=== PATIENT | female | born 1985 | race African-American/Black ===

== ENCOUNTER → 2019-02-18 | Outpatient (REF) | payer OTHER ==
[~2019-02-18] MED LIST: HYDROCHLOROT25 MG PO; LISINOPRIL20 MG PO; NORVASC PO; PRILOSEC40 MG PO; ULTRAM50 M1 PO
== END | disposition home or self-care (01) | DRG 552 ==
LOC: DI 17:56
PROVIDERS: ATTEND Physician Assistant
DX: M54.5 Low back pain (principal)

== ENCOUNTER 2019-06-18 08:34 | Emergency (ER) | payer OTHER ==
[~2019-06-18] VITALS: Ht 152.4 cm; Wt 76.4 kg
[2019-06-18] MEDS ORDERED: NORMODYNE/TRAN100 MG PO (08:51)
[2019-06-18 09:27] LABS: URINE BILIRUBIN - DIPSTICK NEGATIVE (NEGATIVE); URINE BLOOD DIPSTICK NEGATIVE (NEGATIVE); URINE COLOR YELLOW; URINE GLUCOSE - DIPSTICK NEGATIVE (NEGATIVE); URINE KETONE NEGATIVE (NEGATIVE); URINE LEUK ESTERASE NEGATIVE (NEGATIVE); URINE NITRITE - DIPSTICK NEGATIVE (Negative); URINE PH 6.5 (4.5-8.0); URINE PROTEIN - DIPSTICK NEGATIVE (NEG-TRACE); URINE SPECIFIC GRAVITY 1.015
[2019-06-18 09:27] LABS: HEMATOCRIT 41.4 % (37.0-47.0); HEMOGLOBIN 13.1 g/dl (12.0-16.0); IMMATURE GRANULOCYTES 0.2 % (0.0-5.0); MEAN CELL VOLUME 84.8 fL CALC (80.0-100.0); MEAN CORPUSCULAR HGB 26.8 pG CALC (26.0-32.0); MEAN CORPUSCULAR HGB CONC 31.6 g/L CALC (32.0-36.0); NEUT# 4.8 thou/uL (2.00-7.15); RED BLOOD COUNT 4.88 mill/uL (4.20-5.60); RED CELL DISTRI WIDTH 14.3 % (11.5-15.5)
[2019-06-18 10:30] LABS: ANION GAP 15 (6-22 (CALC)); BUN 14 mg/dL (7-17); BUN/CREATININE RATIO 15 (12-20 (CALC)); CARBON DIOXIDE 28 mmol/l (22-30); CHLORIDE 101 mmol/l (95-108); CREATININE 0.9 mg/dL (0.5-1.0); GFR > 60 ML/MIN (>=60 (CALC)); GFR FOR AFR.AMER. > 60 ML/MIN (>=60 (CALC)); POTASSIUM 3.3 mmol/l (3.5-5.1); SODIUM 140 mmol/l (137-146)
[2019-06-18] MEDS ORDERED: K-TAB20 MEQ PO (10:40)
[2019-06-18 11:15] VITALS: BP 130/76
== END 2019-06-18 11:32 | disposition home or self-care (01) | DRG 103 ==
LOC: ED 08:34
PROVIDERS: Family Medicine
DX: R51 Headache (principal); I10 Essential (primary) hypertension

== ENCOUNTER 2019-11-20 15:29 | Observation (INO) | payer OTHER ==
[~2019-11-20] VITALS: Ht 152.4 cm; Wt 78.5 kg
[~2019-11-20 15:29] MED LIST changes: +K-TAB20 MEQ PO; +NORMODYNE/TRAN100 MG PO
--- NOTE | 2019-11-20 15:30 | NUR ---
PT AMB TO ROOM FOR BEDSIDE TRIAGE,DECLINED WC
--- NOTE | 2019-11-20 15:55 | NUR ---
PT MEDICATED AT THIS TIME WITH LABETOLOL PER MAR FOR HTN; MONITORING DEVICES IN PLACE; WILL CONTINUE TO MONTCHEYENNE
[2019-11-20 16:12] LABS: HEMATOCRIT 37.2 % (37.0-47.0); HEMOGLOBIN 11.9 g/dl (12.0-16.0); IMMATURE GRANULOCYTES 0.1 % (0.0-5.0); MEAN CELL VOLUME 85.9 fL CALC (80.0-100.0); MEAN CORPUSCULAR HGB 27.5 pG CALC (26.0-32.0); NEUT# 5.81 thou/uL (2.00-7.15); RED BLOOD COUNT 4.33 mill/uL (4.20-5.60); RED CELL DISTRI WIDTH 14.4 % (11.5-15.5)
[2019-11-20 16:31] LABS: ANION GAP 12 (6-22 (CALC)); BUN 14 mg/dL (7-17); BUN/CREATININE RATIO 16 (12-20 (CALC)); CARBON DIOXIDE 30 mmol/l (22-30); CHLORIDE 102 mmol/l (95-108); CREATININE 0.9 mg/dL (0.5-1.0); GFR > 60 ML/MIN (>=60 (CALC)); GFR FOR AFR.AMER. > 60 ML/MIN (>=60 (CALC)); POTASSIUM 3.3 mmol/l (3.5-5.1); SODIUM 141 mmol/l (137-146)
--- NOTE | 2019-11-20 16:45 | NUR ---
PT RESTING ON STRETCHER; C/O CONTINUED MONK; B/P REMAINS ELEVATED; MD NOTIFIED; WILL CONTINUE TO MONITOR
--- NOTE | 2019-11-20 17:45 | NUR ---
PT TO RADIOLOGY IN STABLE CONDITION
--- NOTE | 2019-11-20 18:11 | NUR ---
SBAR PRINTED TO FLOOR
--- NOTE | 2019-11-20 18:42 | NUR ---
PT MEDICATED PER MAR FOR MONK RATING 7 OUT OF 10;
--- NOTE | 2019-11-20 18:55 | NUR ---
REPORT GIVEN TO KENNEDY, RN
--- NOTE | 2019-11-20 19:21 | NUR ---
UP TO RR TO VOID SR WITHOUT ECTOPY.W/P/D SKIN DENIES PAIN
--- NOTE | 2019-11-20 20:54 | NUR ---
CARDIZEM DRIP REDUCED FROM 5MCG TO 2.5 MCG FOR RESOLVING BP.W/P/D SKIN NO CO PAIN SR WITHOUT ECTOPY
--- NOTE | 2019-11-20 21:57 | NUR ---
JOSUE PINA RETURNED TO5MCG AFTER VS CK W/P/D SKIN SLEEPING IN INTERVALS
--- NOTE | 2019-11-20 22:00 | NUR ---
PHONE REPORT TO ALEJANDRO GUTIERREZ IN ICU
--- NOTE | 2019-11-20 22:05 | NUR ---
TRANSPORTED PT TO ICU VIA STRETCHER ON MONITOR IN STABLE CONDITIOPN PAINFREE
--- NOTE | 2019-11-20 22:25 | NUR ---
PT. ARRIVES VIA STRETCHER TO ICU. AMBULATORY WITH STEADY GAIT FROM ER STRETCHER TO RESTROOM AND THEN TO ICU BED. PLACED ON MONITOR, SINUS IN THE 80'S. BP 144/92. AWAKE, ALERT, ORIENTED X 3. SKIN WARM AND DRY. C/O 3/10 FRONTAL HEADACHE AT THIS TIME. PLACED BACK ON CARDENE DRIP. NO DISTRESS. RESPS EVEN AND UNLABORED. SKIN WARM AND DRY. DESIRE. NO EDEMA. DISTIL PULSES INTACT. LUNGS CTA. BP/HR STABLE. CALL LIGHT EXPLAINED TO PATIENT AND PLACED WITHIN REACH. WILL CONTINUE TO CLOSELY MONITOR.
[2019-11-20 22:30] VITALS: BP 144/92
[2019-11-20 22:45] VITALS: BP 139/90
[2019-11-20 23:00] VITALS: BP 136/89
[2019-11-20 23:25] VITALS: BP 132/89
[2019-11-21] VITALS (16 sets, daily range): BP systolic 109–149; BP diastolic 74–97
--- NOTE | 2019-11-21 01:17 | NUR ---
PT. RESTING IN BED WITH SNORING RESPIRATIONS. REMAINS STABLE ON THE MONITOR. BP/HR STABLE. PT. VOICES NO COMPLAINTS OR NEEDS AT THIS TIME. WILL CONTINUE TO CLOSELY MONITOR.
--- NOTE | 2019-11-21 02:25 | NUR ---
PT. REMAINS RESTING WITH EYES CLOSED IN NO DISTRESS. INTERMITTENT SNORING REPSIRATIONS. KVO FLUIDS ALONG WITH CARDENE DRIP CONTINUE TO INFUSE DIRECTED. WILL CONTINUE TO CLOSELY MONITOR AND ADJUST DRIP ACCORDINGLY. WILL CONTINUE TO MONITOR.
--- NOTE | 2019-11-21 03:59 | NUR ---
PT. CONTINUES TO REST IN BED IN NO DISTRESS. CALL LIGHT REMAINS WITHIN REACH. VOICES NO COMPLAINTS OR NEEDS AT THIS TIME. CARDENE DRIP CONTINUES TO INFUSE AT 2.5 MG/HR. WILL CONTINUE TO CLOSELY MONITOR.
--- NOTE | 2019-11-21 05:20 | NUR ---
PT. AMBULATORY WITH STEADY GAIT TO RESTROOM AT THIS TIME. CALL LIGHT PLACED BACK WITHIN REACH. PT. VOICES NO COMPLAINTS OR NEEDS AT THIS TIME. WILL CONTINUE TO MONITOR.
--- NOTE | 2019-11-21 06:45 | NUR ---
RECIEVED REPROT FROM BRENDA ALLEN. ASSUMED PT CARE.
--- NOTE | 2019-11-21 08:00 | NUR ---
PT A&OX3, ABLE TO MAKE NEEDS KNOWN. PT DENIES CP, SOB OR DISTRESS AT THIS TIME. CARDENE GTT STOPPED PER DR. ROBB. RESPIRATIONS EVEN/UNLABORED, LS CLEAR THROUGHOUT. ABDOMEN SOFT, TENDER IN LLQ R/T BIOPSY COMPLETED MONDAY. PT RESTING IN BED. CALL LIGHT IN REACH. WILL MONITOR.
--- NOTE | 2019-11-21 09:55 | NUR ---
CONSENT FOR FLU VACCINE OBTAINED, VACCINE GIVEN TO LEFT ARM. PT TOLERATED WELL.
--- NOTE | 2019-11-21 10:00 | NUR ---
PT ASSISTED TO BATHROOM. PT STEADY GAIT. OFFERS NO COMPLAINTS AT THIS TIME.CALL LIGHT IN REACH. WILL MONITOR.
--- NOTE | 2019-11-21 11:31 | NUR ---
DIETARY ON UNIT, PT REPOSITIONED SELF. LUNCH TRAY SET UP.
--- NOTE | 2019-11-21 13:00 | NUR ---
PT RESTING IN BED WITH EYES CLOSED, RESPIRATIONS EVEN/UNLABORED. CALL LIGHT IN REACH. WILL MONITOR.
--- NOTE | 2019-11-21 14:47 | NUR ---
PT RESTING IN BED, B/P STABLE OFFERS NO COMPLAINTS AT THIS TIME. CALL LIGHT IN REACH. WILL MONITOR.
[2019-11-21] MEDS ORDERED: AMLODIPINE BESYL5 MG PO (15:50)
--- NOTE | 2019-11-21 15:52 | NUR ---
DR. ROBB AT BEDSIDE FOR ASSESSMENT AND TO DISCUSS PLAN OF CARE.
--- NOTE | 2019-11-21 16:00 | NUR ---
IV site discontinued, cath intact. No edema , no redness, voices no discomfort.
--- NOTE | 2019-11-21 17:00 | NUR ---
Discharge instructions given. Patient verbalizes understanding of same. Discharged in stable condition via Wheelchair to Home with family. All belongings sent with pt.
== END 2019-11-21 17:00 | disposition home or self-care (01) | DRG 305 ==
LOC: ED 15:29 → ED-I 17:57 → ED 18:09 → ICU 18:10
PROVIDERS: Family Medicine; ADMIT Internal Medicine; ATTEND Internal Medicine
DX: I16.0 Hypertensive urgency (principal); I10 Essential (primary) hypertension; Z23 Encounter for immunization
CPT/HCPCS: J1650

== ENCOUNTER 2021-12-30 12:33 | Emergency (ER) | payer OTHER ==
[~2021-12-30] VITALS: Ht 152.4 cm; Wt 83.0 kg
[~2021-12-30 12:33] MED LIST changes: +AMLODIPINE BESYL5 MG PO
[2021-12-30] MEDS ORDERED: ATENOLOL25 MG PO (12:44)
[2021-12-30 12:54] LABS: HEMATOCRIT 41.8 % (37.0-47.0); HEMOGLOBIN 13.2 g/dl (12.0-16.0); IMMATURE GRANULOCYTES 0.3 % (0.0-5.0); MEAN CELL VOLUME 90.1 fL CALC (80.0-100.0); MEAN CORPUSCULAR HGB 28.4 pG CALC (26.0-32.0); MEAN CORPUSCULAR HGB CONC 31.6 g/dL CAL (32.0-36.0); NEUT# 4.25 thou/uL (2.00-7.15); RED BLOOD COUNT 4.64 mill/uL (4.20-5.60); RED CELL DISTRI WIDTH 13.8 % (11.5-15.5)
[2021-12-30 13:43] LABS: ALBUMIN 3.7 g/dL (3.2-5.0); ALKALINE PHOSPHATASE 79 u/l (38-126); BILIRUBIN, TOTAL 0.8 mg/dL (0.0-1.4); BUN 9 mg/dL (7-17); BUN/CREATININE RATIO 10 (12-20 (CALC)); CHLORIDE 107 mmol/l (95-108); GFR > 60 ML/MIN (>=60 (CALC)); GFR FOR AFR.AMER. > 60 ML/MIN (>=60 (CALC)); SGOT/AST 29 u/l (14-36); SODIUM 138 mmol/l (137-146); TOTAL PROTEIN 7.1 g/dL (6.3-8.2)
[2021-12-30 13:46] LABS: ANION GAP 12 (6-22 (CALC)); CARBON DIOXIDE 23 mmol/l (22-30)
[2021-12-30 14:01] LABS: URINE BILIRUBIN - DIPSTICK NEGATIVE (NEGATIVE); URINE BLOOD DIPSTICK NEGATIVE (NEGATIVE); URINE COLOR YELLOW; URINE GLUCOSE - DIPSTICK NEGATIVE (NEGATIVE); URINE KETONE TRACE mg/dL (NEGATIVE); URINE LEUK ESTERASE NEGATIVE (NEGATIVE); URINE PH 6.5 (4.5-8.0)
[2021-12-30 14:08] LABS: URINE NITRITE - DIPSTICK NEGATIVE (Negative); URINE PROTEIN - DIPSTICK Trace mg/dL (NEG-TRACE)
[2021-12-30 17:35] VITALS: BP 129/76
== END 2021-12-30 17:36 | disposition home or self-care (01) | DRG 179 ==
LOC: ED 12:33
PROVIDERS: Family Medicine
DX: U07.1 COVID-19 (principal); I10 Essential (primary) hypertension